=== PATIENT | female | born 1955 | race Caucasian/White ===

== ENCOUNTER 2017-12-07 09:17 | Outpatient (CLI) | payer OTHER | END 2017-12-07 09:18 | disposition home or self-care (01) | LOC: BICULT 09:17 | PROVIDERS: ATTEND Family Medicine | DX: L76.82 Other postprocedural complications of skin and subcutaneous tissue (principal); Z90.5 Acquired absence of kidney | CPT/HCPCS: 76700 ==

== ENCOUNTER 2017-12-14 15:14 | Outpatient (CLI) | payer OTHER | END 2017-12-14 15:15 | disposition home or self-care (01) | LOC: BICMAMMO 15:14 | PROVIDERS: ATTEND Family Medicine | DX: Z12.31 Encounter for screening mammogram for malignant neoplasm of breast (principal); R92.1 Mammographic calcification found on diagnostic imaging of breast | CPT/HCPCS: 77067 ==

== ENCOUNTER 2019-05-10 13:15 | Outpatient (CLI) | payer OTHER ==
--- NOTE | 2019-05-10 14:33 | MRI ---
MRI CERVICAL SPINE WITHOUT CONTRAST: HISTORY: Cervical disc disorder. Bilateral arm numbness.. COMPARISON: None FINDINGS: Appropriate T1 marrow signal intensity of the cervical vertebrae. Cervical spine vertebral body heigh t is maintained. No fracture. No significant STIR hyperintensity to suggest vertebral body edema or ligamentous injury. Visualized brain parenchyma, cervicomedullary junction, cervical cord and the upper thoracic cord hav e a normal size and signal intensity Spondylolisthesis: C3-C4: 2.1 mm of anterolisthesis. C2-C3: No significant central canal stenosis or significant neural foraminal narrowing. C3-C4: Central disc protrusion abuts the thecal sac. Subarachnoid space is maintained. Mild central c anal stenosis. Bilaterally the neural foramina are patent. C4-C5: Broad-based disc-osteophyte complex abuts the thecal sac. Subarachnoid space is maintained. Mi nimal central canal stenosis. Neural foramina are patent. C5-C6: Broad-based disc-osteophyte complex abuts the thecal sac. Subarachnoid space is nearly effaced . There is contact upon the cervical cord. Mild central canal stenosis. No cord signal abnormality. Mild right neural foramen narrowing due to uncovertebral hypertrophy. Left neural foramen is patent. C6-C7: Broad-based disc-osteophyte complex abuts the thecal sac. Subarachnoid space is effaced. No si gnificant mass effect upon the cervical cord. No significant central canal stenosis. Bilaterally, neural foramina are patent. C7-T1: No significant central canal stenosis or significant neural foraminal narrowing. IMPRESSION: Degenerative changes of the cervical spine as described above. Transcribed Date/Time: 05/10/2019 2:42 PM
== END 2019-05-10 13:16 | disposition home or self-care (01) ==
LOC: TBSIIMAG 13:15
PROVIDERS: ATTEND Family Medicine
DX: M50.122 Cervical disc disorder at C5-C6 level with radiculopathy (principal); M47.22 Other spondylosis with radiculopathy, cervical region
CPT/HCPCS: 72141

== ENCOUNTER 2020-05-08 10:58 | Outpatient (CLI) | payer OTHER | END 2020-05-08 10:59 | disposition home or self-care (01) | LOC: CTENTCT 10:58 | PROVIDERS: ATTEND Specialist | DX: J32.9 Chronic sinusitis, unspecified (principal) | CPT/HCPCS: 70486 ==

== ENCOUNTER 2020-05-14 13:13 | Outpatient (CLI) | payer OTHER | END 2020-05-14 13:14 | disposition home or self-care (01) | LOC: ULT 13:13 | PROVIDERS: ATTEND Family Medicine | DX: R05 Cough (principal); I08.1 Rheumatic disorders of both mitral and tricuspid valves | CPT/HCPCS: 93306 ==

== ENCOUNTER 2020-10-13 12:33 | Outpatient (CLI) | payer BC | END 2020-10-13 12:34 | disposition home or self-care (01) | LOC: BICULT 12:33 | PROVIDERS: ATTEND Family Medicine | DX: M79.89 Other specified soft tissue disorders (principal); R22.31 Localized swelling, mass and lump, right upper limb ==

== ENCOUNTER 2023-06-06 13:49 | Outpatient (CLI) | payer MEDICARE | END 2023-06-06 13:50 | disposition home or self-care (01) | LOC: BICMAMMO 13:49 | PROVIDERS: ATTEND Family Medicine | DX: N63.13 Unspecified lump in the right breast, lower outer quadrant (principal) | CPT/HCPCS: 76642; 77066; G0279 ==

== ENCOUNTER 2024-02-14 13:21 | Outpatient (CLI) | payer MEDICARE | END 2024-02-14 13:22 | disposition home or self-care (01) | LOC: BICMAMMO 13:21 | PROVIDERS: ATTEND Family Medicine | DX: N63.10 Unspecified lump in the right breast, unspecified quadrant (principal); R92.323 Mammographic fibroglandular density, bilateral breasts; Z87.898 Personal history of other specified conditions | CPT/HCPCS: 76642; 77066; G0279 ==

== ENCOUNTER 2024-05-06 08:26 | Outpatient (CLI) | payer MEDICARE | END 2024-05-06 08:27 | disposition home or self-care (01) | LOC: RAD 08:26 | PROVIDERS: ATTEND Internal Medicine Critical Care Medicine | DX: R06.00 Dyspnea, unspecified (principal) | CPT/HCPCS: 71046 ==

== ENCOUNTER 2025-05-07 08:49 | Outpatient (CLI) | payer MEDICARE ==
[2025-05-07 09:42] LABS: Estimated GFR - POC 69.0
[2025-05-07] MEDS ORDERED: Iopamidol 370 76% 100 ML VIAL ONE (10:37)
== END 2025-05-07 08:50 | disposition home or self-care (01) ==
LOC: CT 08:49
PROVIDERS: ATTEND Specialist
DX: D37.030 Neoplasm of uncertain behavior of the parotid salivary glands (principal)
CPT/HCPCS: 36415; 70470; 70491; 82565; Q9967